=== PATIENT | female | born 2000 | race Hispanic/Latino ===

== ENCOUNTER 2022-04-14 09:16 | Emergency (ER) | payer OTHER ==
[~2022-04-14] VITALS: Ht 170.2 cm; Wt 120.9 kg
[2022-04-14] MEDS ORDERED: LIDOCAINE 1% W/EPINEPHRINE 20 ML VIAL INJ ONE (10:00)
[2022-04-14] MEDS ORDERED: LIDOCAINE 2% /EPINEPHRINE 20 ML SDV INJ ONE (10:01)
[2022-04-14] MEDS ORDERED: BACTRIM DS TAB1 EACH PO (10:05)
== END 2022-04-14 10:56 | disposition home or self-care (01) ==
LOC: ER 09:45
DX: N76.4 Abscess of vulva (principal)
CPT/HCPCS: 56405; 99283; J2001

== ENCOUNTER 2022-07-15 21:34 | Emergency (ER) | payer OTHER, BC ==
[~2022-07-15] VITALS: Ht 172.7 cm; Wt 122.0 kg
[~2022-07-15 21:34] MED LIST: BACTRIM DS TAB1 EACH PO
[2022-07-15] MEDS ORDERED: CEFTRIAXONE 1 GM VIAL IM ONE (22:15)
[2022-07-15] MEDS ORDERED: CEFDINIR300 MG PO (22:15)
[2022-07-15] MEDS ORDERED: IBUPROFEN200 MG PO (22:15)
[2022-07-15] MEDS ORDERED: THERAFLU FLU &1 EAC1 PO (22:15)
[2022-07-15 23:00] VITALS: BP 136/70
== END 2022-07-15 23:00 | disposition home or self-care (01) ==
LOC: FSED 21:45
DX: J02.0 Streptococcal pharyngitis (principal); R05.9 Cough, unspecified
CPT/HCPCS: 83518; 96372; 99282